=== PATIENT | female | born 1960 | race Caucasian/White ===

== ENCOUNTER 2017-01-12 18:23 | Inpatient (IN) | payer BC ==
[2017-01-12] MEDS ORDERED: 0.9 % SODIUM CHLORIDE 1,000 ML BAG IV ONE ×3 (19:52→22:38)
[2017-01-12] MEDS ORDERED: ONDANSETRON HCL IV 4 MG/2 ML VIAL IV ONE (19:52)
--- NOTE | 2017-01-12 19:52 | Emergency Department Record ---
History of Present Illness - General Stated complaint: FLU,ABD PAIN Time Seen by Provider: 01/12/17 19:43 Source: Patient, Family - History of Present Illness Initial comments: Flu symptoms began on Sunday01-10-17 with cough, congestion, total body aches , abdominal pain nausea, vomiting times 3-4 and diarrhea. Subjective fevers, chills. Yesterday her RUQ began hurting. She is a pack per day smoker. - Related Data Allergies Allergy/AdvReac Type Severity Reaction Status Date / Time No Known Drug Allergies Allergy Unverified 09/29/16 14:23 Review of Systems Reviewed: No additional complaints except as noted below Constitutional: Reports: As per HPI. Denies: Chills, Fever, Malaise, Night sweats, Weakness, Weight change Eyes: Reports: As per HPI. Denies: Eye discharge, Eye pain, Photophobia, Vision change ENT: Reports: As per HPI. Denies: Congestion, Dental pain, Ear pain, Epistaxis , Hearing loss, Throat pain Respiratory: Reports: As per HPI. Denies: Cough, Dyspnea, Hemoptysis, Stridor, Wheezes Cardiovascular: Reports: As per HPI. Denies: Arrhythmia, Chest pain, Dyspnea on exertion, Edema, Murmurs, Orthopnea, Palpitations, Paroxysmal nocturnal dyspnea, Rheumatic Fever, Syncope Endocrine: Reports: As per HPI. Denies: Fatigue, Heat or cold intolerance, Polydipsia, Polyuria Gastrointestinal: Reports: As per HPI. Denies: Abdominal pain, Constipation, Diarrhea, Hematemesis, Hematochezia, Melena, Nausea, Vomiting Genitourinary: Reports: As per HPI. Denies: Abnormal menses, Discharge, Dyspareunia, Dysuria, Frequency, Hematuria, Incontinence, Retention, Urgency Musculoskeletal: Reports: As per HPI. Denies: Arthralgia, Back pain, Gout, Joint swelling, Myalgia, Neck pain Skin: Reports: As per HPI. Denies: Bruising, Change in color, Change in hair/ nails, Lesions, Pruritus, Rash Neurological: Reports: As per HPI. Denies: Abnormal gait, Confusion, Headache, Numbness, Paresthesias, Seizure, Tingling, Tremors, Vertigo, Weakness Psychiatric: Reports: As per HPI. Denies: Anxiety, Auditory hallucinations, Depression, Homicidal thoughts, Suicidal thoughts, Visual hallucinations Hematological/Lymphatic: Reports: As per HPI. Denies: Anemia, Blood Clots, Easy bleeding, Easy bruising, Swollen glands Past Medical History - SOCIAL HISTORY Smoking Status: Current every day smoker - RESPIRATORY Hx Respiratory Disorders: No - CARDIOVASCULAR Hx Cardio Disorders: No - NEURO Hx Neuro Disorders: Yes Hx Headaches: Yes - GI Hx GI Disorders: No - Hx Genitourinary Disorders: No - ENDOCRINE Hx Endocrine Disorders: No - MUSCULOSKELETAL Hx Musculoskeletal Disorders: No - PSYCH Hx Psych Problems: No - HEMATOLOGY/ONCOLOGY Hx Hematology/Oncology Disorders: No Family Medical History Hx Cancer: Mother Hx Heart Disease: Father Physical Exam - General General Appearance: Alert, Oriented x3, Cooperative, Moderate distress ( congested, fatigued, coughing episodes, holding RUQ abdomen) - Head Head exam: Normal inspection - Eye Eye exam: Normal appearance, PERRL Pupils: Normal accommodation - ENT ENT exam: Normal exam, Mucous membranes dry, Normal external ear exam, Normal orophraynx, TM's normal bilaterally Ear exam: Normal external inspection. negative: External canal tenderness Nasal Exam: Normal inspection, Discharge (congestion). negative: Sinus tenderness Mouth exam: Normal external inspection, Tongue normal Teeth exam: Normal inspection. negative: Dental caries Throat exam: Normal inspection. negative: Tonsillar erythema, Tonsillar exudate - Neck Neck exam: Normal inspection, Full ROM. negative: Lymphadenopathy, Meningismus , Tenderness - Respiratory Respiratory exam: Prolonged expiratory, Rhonchi (coarse harsh breath sounds, especially with coughing), Other (RA biox on admission was 92% which improved with 2 liters nc.). negative: Accessory muscle use, Respiratory distress, Stridor - Cardiovascular Cardiovascular Exam: Normal rhythm, Normal heart sounds, Tachycardia - GI/Abdominal GI/Abdominal exam: Soft, Normal bowel sounds, Tenderness (RUQ and epigastric tenderness on palpation) - Rectal Rectal exam: Deferred - exam: Deferred - Extremities Extremities exam: Normal inspection, Full ROM, Normal capillary refill. negative: Calf tenderness, Pedal edema, Tenderness - Back Back exam: Reports: Normal inspection, Full ROM. Denies: CVA tenderness (R), CVA tenderness (L), Muscle spasm, Rash noted, Tenderness - Neurological Neurological exam: Alert, CN II-XII intact, Normal gait, Oriented X3, Reflexes normal - Psychiatric Psychiatric exam: Normal affect, Normal mood - Skin Skin exam: Dry, Intact, Normal color, Warm Course Vital Signs 01/12/17 19:15 Temperature 101.2 F H Pulse Rate [ 98 H Pulse Ox Probe] Respiratory 20 Rate Blood Pressure 160/87 [Left Arm] Pulse Ox 93 L - Reevaluation(s) Reevaluation #1: Informed patient of her test results and her Right lower lobe pneumonia. She agrees to admission. Urine is very dark in color. Will wait for results prior to admission. 01/12/17 22:01 Reevaluation #2: Patient appears much more comfortable after hydration and nebulizer although agrees she is in need of admission. Orders in progress. IV antibiotics infused , states her nebulizer did not help much. 01/12/17 22:41 01/12/17 22:42 Medical Decision Making - Management Options MDM Management: Additional Work-up Planned (e.g. ADM/Transfer/OP Study) - Data Complexity MDM Data: Labs Ordered and/or Reviewed (WBC 8.3 with 13 BANDS; ), X-Ray Ordered and/or Reviewed (CXR: Dense conslolidation RLL per radiologist.) - Lab Data Result diagrams: 01/12/17 19:40 01/12/17 19:40 Disposition Disposition: Admit Clinical Impression: Dehydration Pneumonia Qualifiers: Pneumonia type: due to unspecified organism Laterality: right Lung location: lower lobe of lung Qualified Code(s): J18.1 - Lobar pneumonia, unspecified organism Fever Qualifiers: Fever type: unspecified Qualified Code(s): R50.9 - Fever, unspecified Disposition: Still a Patient at [facility] Decision to Admit: Admit from ER Decision to Admit Date: 01/12/17 Decision to Admit Time: 22:45 Accepting Physician: Dr. Dowling Condition: (2) Stable
[2017-01-12] MEDS ORDERED: ACETAMINOPHEN 325 MG TAB PO ONE (19:55)
[2017-01-12] MEDS ORDERED: KETOROLAC 30 MG/ML VIAL IVP ONE (19:55)
[2017-01-12 20:04] LABS: HEMATOCRIT 43.6 % (35.0-47.0); HEMOGLOBIN 14.7 gm/dl (11.6-16.0); MEAN CELL VOLUME 92.8 fl (81-97); MEAN CORPUSCULAR HEMOGLOBIN 31.3 pg (27-33); MEAN CORPUSCULAR HGB CONC 33.7 g/dl (32-36); MEAN PLATELET VOLUME 9.7 fl (7.4-10.4); PLATELET COUNT 182 K/uL (130-400); RED CELL DISTRIBUTION WIDTH 13.5 % (11.5-14.5); WHITE BLOOD COUNT W/O DIFF 8.3 K/uL (4.2-12.2)
[2017-01-12 20:13] LABS: PLATELET ESTIMATE NORMAL (NORMAL)
[2017-01-12 20:15] LABS: ALBUMIN 4.3 gm/dL (3.5-5.0); BILIRUBIN,TOTAL 1.06 mg/dL (0.2-1.3); TOTAL PROTEIN 7.4 gm/dL (6.3-8.2)
[2017-01-12] MEDS ORDERED: AZITHROMYCIN 500 MG TABLET PO ONE (21:07)
[2017-01-12] MEDS ORDERED: CEFTRIAXONE SODIUM 2 GM in 0.9 % SODIUM CHLORIDE 100ML 100 ML IVPB ONE (21:07)
[2017-01-12] MEDS ORDERED: IPRATROPIUM/ALBUTEROL (0.5MG/3MG) NEB INH ONE (21:07)
[2017-01-12 21:10] LABS: ANION GAP 9.9 (7-16); BLOOD UREA NITROGEN 20 mg/dL (7-17); CARBON DIOXIDE 27.1 mmol/L (22-30); CREATININE 0.8 mg/dL (0.52-1.04); EST GLOMERULAR FILTRATION RATE > 60 ml/min; GLUCOSE,RANDOM 115 mg/dL (70-110)
[2017-01-12 21:29] LABS: INFLUENZA A NEGATIVE (NEGATIVE); INFLUENZA B NEGATIVE (NEGATIVE)
[2017-01-12] MEDS ORDERED: POTASSIUM CHLORIDE 20 MEQ TABLET PO ONE (21:59)
[2017-01-12 22:05] LABS: URINE APPEARANCE CLEAR; URINE BILIRUBIN SMALL (NEGATIVE); URINE BLOOD MODERATE (NEGATIVE); URINE COLOR YELLOW; URINE GLUCOSE (UA) NEGATIVE (NEGATIVE); URINE KETONE 40 mg/dL (NEGATIVE); URINE LEUKOCYTE ESTERASE NEGATIVE (NEGATIVE); URINE NITRITE NEGATIVE (NEGATIVE)
[2017-01-12 22:15] LABS: URINE AMORPHOUS SEDIMENT 2+; URINE MUCUS HEAVY
[2017-01-12] MEDS ORDERED: AL HYDROX/MAG HYDROX 30ML UD PO PRN (23:47)
[2017-01-12] MEDS ORDERED: CEFTRIAXONE SODIUM 2 GM in 0.9 % SODIUM CHLORIDE 100ML 100 ML IVPB SCH (23:47)
[2017-01-13] MEDS: HYDROMORPHONE HCL 1 MG/ML CPJ IVP PRN ×2 (00:15→05:06)
[2017-01-13] MEDS: 0.9 % SODIUM CHLORIDE 1000ML 1,000 ML IV PRN ×3 (01:20→18:47)
[2017-01-13] MEDS: METHYLPREDNISOLONE PF 125MG/VIAL IVP SCH ×2 (01:23→09:52)
[2017-01-13] MEDS: IPRATROPIUM/ALBUTEROL (0.5MG/3MG) NEB INH SCH ×6 (02:26→22:05)
[2017-01-13] MEDS: ACETAMINOPHEN 500 MG TABLET PO PRN ×2 (05:07→23:07)
[2017-01-13] MEDS ORDERED: ALBUTEROL SULFATE (0.083%) 2.5 MG/3 ML NEB INH SCH (06:00)
[2017-01-13 06:07] LABS: BASO % 0.3 % (0-6); EOS % 0.1 % (0-6); HEMOGLOBIN 12.1 gm/dl (11.6-16.0); LYMPH % 6.1 % (16-45); MEAN CELL VOLUME 93.4 fl (81-97); MEAN CORPUSCULAR HEMOGLOBIN 30.6 pg (27-33); MEAN CORPUSCULAR HGB CONC 32.7 g/dl (32-36); MEAN PLATELET VOLUME 9.4 fl (7.4-10.4); MONO % 6.7 % (0-9); PLATELET COUNT 173 K/uL (130-400); RED BLOOD COUNT 3.96 M/uL (3.80-5.40); RED CELL DISTRIBUTION WIDTH 13.6 % (11.5-14.5); WHITE BLOOD COUNT W/O DIFF 6.9 K/uL (4.2-12.2)
[2017-01-13] MEDS ORDERED: ALBUTEROL SULFATE (0.083%) 2.5 MG/3 ML NEB INH PRN (08:54)
[2017-01-13] MEDS ORDERED: AZITHROMYCIN 500 MG TABLET PO SCH (10:00)
[2017-01-13] MEDS ORDERED: HYDROCODONE/APAP 5/325MG TABLET PO PRN (11:54)
--- NOTE | 2017-01-13 12:15 | History & Physical ---
History of Present Illness - Date of Service Date of Service for History & Physical: 01/13/17 - History of Present Illness Admitting Diagnosis: RLL Pneumonia; dehydration; History of Present Illness: 56 y/o female with CC MONY and RUQ abdominal pain admitted with RLL pneumonia. No significant medical history, is an everyday smoker. Prior to admission had 2 day history of fever, chills, cough, congestion, body aches, diarrhea, nausea and vomiting with onset of MONY, RUQ abdominal pain and rigidity the day of admission. Has never been hospitalized for pneumonia before. While in the ED WBC 8.3, Plt 182, Bands 13.0, K 3.4, BUN 20, Lipase 19, AST/ALT normal, urine + ketones, influenza screen negative. CXR RLL dense consolidation. Was given toradol for RUQ abdominal pain with little relief. 01/13- resting comfortably in room, no dysnea noted. Reports RUQ abdominal pain has greatly improved since receiving Dilaudid. Has been afebrile, Tmax in ED 101.2. Nausea and vomiting have resolved. Has not smoked in 5 days and plans on quitting cold turkey. PCP Dr Kerwin Roberson Travel Screening - Travel/Exposure Within Last 30 Days Have you traveled within the last 30 days?: No - Travel/Exposure Within Last Year Have you traveled outside the [place] in the last year?: No - Additonal Travel Details Have you been exposed to anyone with a communicable illness?: No - Travel Symptoms Symptom Screening: Fever (Subjective), Headache, Joint & Muscle Aches, Weakness , Fatigue, Diarrhea, Vomiting, Stomach Pain, Lack of Appetite, Chills Review of Systems Constitutional: Reports: As per HPI. Denies: Chills, Fever, Malaise, Night sweats, Weakness, Weight change Eyes: Reports: As per HPI. Denies: Eye discharge, Eye pain, Photophobia, Vision change ENT: Reports: As per HPI. Denies: Congestion, Dental pain, Ear pain, Epistaxis , Hearing loss, Throat pain Respiratory: Reports: As per HPI. Denies: Cough, Dyspnea, Hemoptysis, Stridor, Wheezes Cardiovascular: Reports: As per HPI. Denies: Arrhythmia, Chest pain, Dyspnea on exertion, Edema, Murmurs, Orthopnea, Palpitations, Paroxysmal nocturnal dyspnea, Rheumatic Fever, Syncope Endocrine: Reports: As per HPI. Denies: Fatigue, Heat or cold intolerance, Polydipsia, Polyuria Gastrointestinal: Reports: As per HPI. Denies: Abdominal pain, Constipation, Diarrhea, Hematemesis, Hematochezia, Melena, Nausea, Vomiting Genitourinary: Reports: As per HPI. Denies: Abnormal menses, Discharge, Dyspareunia, Dysuria, Frequency, Hematuria, Incontinence, Retention, Urgency Musculoskeletal: Reports: As per HPI. Denies: Arthralgia, Back pain, Gout, Joint swelling, Myalgia, Neck pain Skin: Reports: As per HPI. Denies: Bruising, Change in color, Change in hair/ nails, Lesions, Pruritus, Rash Neurological: Reports: As per HPI. Denies: Abnormal gait, Confusion, Headache, Numbness, Paresthesias, Seizure, Tingling, Tremors, Vertigo, Weakness Psychiatric: Reports: As per HPI. Denies: Anxiety, Auditory hallucinations, Depression, Homicidal thoughts, Suicidal thoughts, Visual hallucinations Hematological/Lymphatic: Reports: As per HPI. Denies: Anemia, Blood Clots, Easy bleeding, Easy bruising, Swollen glands Past Medical History - SOCIAL HISTORY Smoking Status: Current every day smoker Alcohol Use: None Drug Use: None - RESPIRATORY Hx Respiratory Disorders: No - CARDIOVASCULAR Hx Cardio Disorders: No - NEURO Hx Neuro Disorders: Yes Hx Headaches: Yes (hx migraines) - GI Hx GI Disorders: No - Hx Genitourinary Disorders: No - ENDOCRINE Hx Endocrine Disorders: No - MUSCULOSKELETAL Hx Musculoskeletal Disorders: No - PSYCH Hx Psych Problems: No - HEMATOLOGY/ONCOLOGY Hx Hematology/Oncology Disorders: No Family Medical History Any Significant Family History?: Yes Hx Cancer: Mother Hx Heart Disease: Father H&P Meds/Allergies - Allergies Allergies: Allergies Allergy/AdvReac Type Severity Reaction Status Date / Time No Known Drug Allergies Allergy Unverified 09/29/16 14:23 - Active Medications Active Medications: Current Medications Acetaminophen (Tylenol 500mg Tab) 1,000 mg PO Q6H PRN PRN Reason: PAIN/TEMP Last Admin: 01/13/17 05:07 Dose: 1,000 mg Hydrocodone Bitart/Acetaminophen ([place] 5mg/325mg) 1 each PO Q6H PRN PRN Reason: Pain - Moderate (5-7) Al Hydroxide/Mg Hydroxide (Maalox) 30 ml PO DAILY PRN PRN Reason: INDIGESTION Albuterol Sulfate () 2.5 mg INH RESP.Q2H PRN PRN Reason: DIFFICULTY IN BREATHING Stop: 01/18/17 08:53 Albuterol/Ipratropium (Duoneb) 3 ml INH RESP.Q4H.[facility] Last Admin: 01/13/17 09:30 Dose: 3 ml Azithromycin (Zithromax) 500 mg PO DAILY [facility] Last Admin: 01/13/17 09:52 Dose: 500 mg Hydromorphone HCl (Dilaudid) 0.5 mg IVP Q2H PRN PRN Reason: Pain - Moderate (5-7) Last Admin: 01/13/17 05:06 Dose: 0.5 mg Sodium Chloride () 1,000 mls @ 125 mls/hr IV .Q8H PRN PRN Reason: LARGE VOLUME IV Last Admin: 01/13/17 09:53 Dose: 125 mls/hr Ceftriaxone Sodium 2 gm/ (Sodium Chloride) 100 mls @ 200 mls/hr IVPB Q24H [facility] Stop: 01/18/17 22:01 Methylprednisolone Sodium Succinate (Solu-Medrol) 60 mg IVP DAILY [facility] Last Admin: 01/13/17 09:52 Dose: 60 mg Physical Exam - Vital Signs Vital Signs: Vital Signs - Last 24 Hrs Temp Pulse Pulse Resp BP BP BP 01/13/17 10:28 68 16 01/13/17 10:27 01/13/17 10:00 98.3 F 72 18 88/63 01/13/17 09:00 20 01/13/17 06:06 80 18 01/13/17 05:10 99.2 F 84 18 121/75 01/12/17 23:58 99.0 F 90 20 113/61 01/12/17 23:47 99.3 F 96 H 20 133/72 Pulse Ox 01/13/17 10:28 96 01/13/17 10:27 94 L 01/13/17 10:00 96 01/13/17 09:00 01/13/17 06:06 94 L 01/13/17 05:10 93 L 01/12/17 23:58 92 L 01/12/17 23:47 95 - General General Appearance: Alert, Oriented x3, Cooperative - Head Head exam: Normal inspection - Eye Eye exam: Normal appearance, PERRL Pupils: Normal accommodation - ENT ENT exam: Normal exam, Mucous membranes dry, Normal external ear exam, Normal orophraynx, TM's normal bilaterally Ear exam: Normal external inspection. negative: External canal tenderness Nasal Exam: Normal inspection, Discharge (congestion). negative: Sinus tenderness Mouth exam: Normal external inspection, Tongue normal Teeth exam: Normal inspection. negative: Dental caries Throat exam: Normal inspection. negative: Tonsillar erythema, Tonsillar exudate - Neck Neck exam: Normal inspection, Full ROM. negative: Lymphadenopathy, Meningismus , Tenderness - Respiratory Respiratory exam: Prolonged expiratory, Rhonchi (coarse harsh breath sounds, especially with coughing), Other (RA biox on admission was 92% which improved with 2 liters nc.). negative: Accessory muscle use, Respiratory distress, Stridor - Cardiovascular Cardiovascular Exam: Normal rhythm, Normal heart sounds, Tachycardia - GI/Abdominal GI/Abdominal exam: Soft, Normal bowel sounds, Tenderness (RUQ and epigastric tenderness on palpation) - Rectal Rectal exam: Deferred - exam: Deferred - Extremities Extremities exam: Normal inspection, Full ROM, Normal capillary refill. negative: Calf tenderness, Pedal edema, Tenderness - Back Back exam: Reports: Normal inspection, Full ROM. Denies: CVA tenderness (R), CVA tenderness (L), Muscle spasm, Rash noted, Tenderness - Neurological Neurological exam: Alert, CN II-XII intact, Normal gait, Oriented X3, Reflexes normal - Psychiatric Psychiatric exam: Normal affect, Normal mood - Skin Skin exam: Dry, Intact, Normal color, Warm Results - Labs Result Diagrams: 01/13/17 05:55 01/12/17 19:40 Labs Last 24 Hours: Laboratory Results - last 24 hr 01/13/17 05:55 WBC 6.9 RBC 3.96 Hgb 12.1 Hct 37.0 MCV 93.4 MCH 30.6 MCHC 32.7 RDW 13.6 Plt Count 173 MPV 9.4 Neutrophils % 60.0 Band Neutrophils % 28.0 H Lymphocytes % 6.0 L Monocytes % 6.0 Eosinophils % 0.0 Basophils % 0.0 VTE H&P Assessment - Risk for VTE Risk for VTE: Yes Risk Level: Low Risk Assessment Date: 01/13/17 Risk Assessment Time: 12:00 VTE Orders Placed or Will Be Placed: Yes Plan - Inpatient Certification Inpatient Certification: Admit to inpatient care: Based on my medical assessment, after consideration of patient's risk factors (age, co-morbidities and patient presenting symptoms and acuity), I expect that this patient will remain in the hospital greater than or equal to two midnights and that the services needed warrant inpatient care because: Patient Risk Factors: [] Estimated length of stay: [] The patient may reasonably be expected to be discharged or transferred to a hospital within 96 hours after admission to [facility]. Services needed: [] Post hospital care (if known): [] I certify that my determination is in accordance with my understanding of Medicare requirements for reasonable and necessary inpatient services. - Detailed Diagnosis and Plan (1) Pneumonia Current Visit: Yes Status: Acute Qualifiers: Pneumonia type: due to unspecified organism Laterality: right Lung location: lower lobe of lung Qualified Code(s): J18.1 - Lobar pneumonia, unspecified organism Base Code: J18.9 - PNEUMONIA, UNSPECIFIED ORGANISM Comment: 01/13- admitted for RLL pneumonia, is a current everyday smoker. WBC normal with band neut 13.0->28. Tmax 101.2, is currently afebrile. No elevation in liver enzymes, no reported hx gall bladder disease. Abdominal pain likely pulmonary in nature. Abdominal pain significantly improved today, no rigidity organomegaly. - Change antibiotics to Levaquin 750mg QD - Continue Solumedrol 60mg QD - Continue DuoNeb Q 4 hr WA - D-Dimer today - nursing to trial without oxygen - will transition Dilaudid to PO [place] 5/325 for RUQ abdominal pain - plan is to continue immediate smoking cessation at discharge (2) Dehydration Current Visit: Yes Status: Acute Base Code: E86.0 - DEHYDRATION Comment: 01/13- admitted for RLL pneumonia with 2 day history of nausea, vomiting , body aches, chils. Urine in ED + ketones, moderate blood, SG >1.030. Nausea and vomiting resolved now. - continue IVF @ 125ml/hr (3) DVT prophylaxis Current Visit: Yes Status: Acute Base Code: [id number] - Comment: 01/13- low risk, encourage frequent ambulation (4) Full code status Current Visit: Yes Status: Acute Base Code: Z78.9 - OTHER SPECIFIED HEALTH STATUS Comment: 01/13- will remain full code during this hospitalization
[2017-01-13] MEDS ORDERED: CEFTRIAXONE SODIUM 2 GM in 0.9 % SODIUM CHLORIDE 100ML 100 ML IVPB SCH (22:00)
[2017-01-14] MEDS: 0.9 % SODIUM CHLORIDE 1000ML 1,000 ML IV PRN (04:00)
[2017-01-14] MEDS: IPRATROPIUM/ALBUTEROL (0.5MG/3MG) NEB INH SCH ×5 (06:14→22:31)
[2017-01-14] MEDS: LEVOFLOXACIN/D5W 750 MG in DEXTROSE 1 BAG IVPB SCH (10:14)
[2017-01-14] MEDS: METHYLPREDNISOLONE PF 125MG/VIAL IVP SCH (10:15)
[2017-01-14 10:51] LABS: HEMATOCRIT 34.3 % (35.0-47.0); HEMOGLOBIN 11.2 gm/dl (11.6-16.0); MEAN CELL VOLUME 94.2 fl (81-97); MEAN CORPUSCULAR HGB CONC 32.7 g/dl (32-36); MEAN PLATELET VOLUME 9.8 fl (7.4-10.4); PLATELET COUNT 226 K/uL (130-400); RED BLOOD COUNT 3.64 M/uL (3.80-5.40); RED CELL DISTRIBUTION WIDTH 14.1 % (11.5-14.5); WHITE BLOOD COUNT W/O DIFF 8.3 K/uL (4.2-12.2)
[2017-01-14 10:57] LABS: MEAN CORPUSCULAR HEMOGLOBIN 30.7 pg (27-33)
[2017-01-14 11:08] LABS: PLATELET ESTIMATE NORMAL (NORMAL)
[2017-01-14] MEDS: FLUTICASONE/SALMETEROL 250/50 DISKUS INH SCH (18:08)
--- NOTE | 2017-01-14 20:32 | Physician Progress Note ---
Subjective - Date Date of Physician Progress Note: 01/14/17 - Subjective Subjective Comment: Reports breathing is improved from yesterday. Up for a shower today without oxygen, felt "winded" and weak but overall better. Does not feel good enough to go home and is requesting a note to be off from work a few days after discharge. No new nursing concerns. Denies GI/ dysfunction. Objective - Vital Signs Vital Signs: Vital Signs - Last 24 Hrs Temp Pulse Pulse Resp BP Pulse Ox 01/14/17 18:11 80 20 96 01/14/17 18:10 80 18 96 01/14/17 13:52 98.3 F 71 18 119/72 95 01/14/17 10:05 96 H 18 88 L 01/14/17 08:41 20 01/14/17 06:14 60 16 94 L 01/14/17 06:00 98.5 F 64 20 125/66 94 L 01/13/17 22:05 67 20 90 L 01/13/17 22:01 98.5 F 71 18 118/64 91 L - General General Appearance: Alert, Oriented x3, Cooperative - Head Head exam: Normal inspection - Eye Eye exam: Normal appearance, PERRL Pupils: Normal accommodation - ENT ENT exam: Normal exam, Mucous membranes dry, Normal external ear exam, Normal orophraynx, TM's normal bilaterally Ear exam: Normal external inspection. negative: External canal tenderness Nasal Exam: Normal inspection. negative: Sinus tenderness Mouth exam: Normal external inspection, Tongue normal Teeth exam: Normal inspection. negative: Dental caries Throat exam: Normal inspection. negative: Tonsillar erythema, Tonsillar exudate - Neck Neck exam: Normal inspection, Full ROM. negative: Lymphadenopathy, Meningismus , Tenderness - Respiratory Respiratory exam: Decreased breath sounds, Other (RA biox on admission was 92% which improved with 2 liters nc.). negative: Accessory muscle use, Respiratory distress, Stridor - Cardiovascular Cardiovascular Exam: Normal rhythm, Normal heart sounds, Tachycardia - GI/Abdominal GI/Abdominal exam: Soft, Normal bowel sounds, Tenderness (RUQ and epigastric tenderness on palpation) - Rectal Rectal exam: Deferred - exam: Deferred - Extremities Extremities exam: Normal inspection, Full ROM, Normal capillary refill. negative: Calf tenderness, Pedal edema, Tenderness - Back Back exam: Reports: Normal inspection, Full ROM. Denies: CVA tenderness (R), CVA tenderness (L), Muscle spasm, Rash noted, Tenderness - Neurological Neurological exam: Alert, CN II-XII intact, Normal gait, Oriented X3, Reflexes normal - Psychiatric Psychiatric exam: Normal affect, Normal mood - Skin Skin exam: Dry, Intact, Normal color, Warm Assessment and Plan - Assessment and Plan (1) Pneumonia Current Visit: Yes Status: Acute Qualifiers: Pneumonia type: due to unspecified organism Laterality: right Lung location: lower lobe of lung Qualified Code(s): J18.1 - Lobar pneumonia, unspecified organism Base Code: J18.9 - PNEUMONIA, UNSPECIFIED ORGANISM Comment: 01/14- admitted for RLL pneumonia, is a current everyday smoker. WBC normal with band neut 13.0->28-> 9. Tmax 101.2, is currently afebrile. No elevation in liver enzymes, no reported hx gall bladder disease. Abdominal pain likely pulmonary in nature. Abdominal pain resolved improved today without the use of dilaudid or norco, no rigidity/ organomegaly. - Anticipate DC home 01/15 after O2 qualifier complete - Levaquin 750mg QD - Continue Solumedrol 60mg QD - Continue DuoNeb Q 4 hr WA - D-Dimer today- 0.58 - nursing to trial without oxygen- 91% at rest, 88% sleeping - plan is to continue immediate smoking cessation at discharge - Will start on Advair 250/50 BID, likely underlying COPD with continued decrease lung sounds even after bronchodilator, + smoking history - Follow up PCP in 2 weeks - Recommend pulmonary consult at discharge (2) Dehydration Current Visit: Yes Status: Acute Base Code: E86.0 - DEHYDRATION Comment: 01/14- admitted for RLL pneumonia with 2 day history of nausea, vomiting , body aches, chils. Urine in ED + ketones, moderate blood, SG >1.030. Nausea and vomiting resolved now. - SL IV - CMP in am (3) DVT prophylaxis Current Visit: Yes Status: Acute Base Code: [id number] - Comment: 01/14- low risk, encourage frequent ambulation (4) Full code status Current Visit: Yes Status: Acute Base Code: Z78.9 - OTHER SPECIFIED HEALTH STATUS Comment: 01/14- will remain full code during this hospitalization Results - Labs Result Diagrams: 01/14/17 10:26 01/12/17 19:40 Labs Last 24 Hours: Laboratory Results - last 24 hr 01/13/17 01/14/17 10:18 10:26 WBC 8.3 RBC 3.64 L Hgb 11.2 L Hct 34.3 L MCV 94.2 MCH 30.7 MCHC 32.7 RDW 14.1 Plt Count 226 MPV 9.8 Neutrophils % 74.0 Band Neutrophils % 9.0 H Lymphocytes % 14.0 L Monocytes % 3.0 Eosinophils % Cancelled Basophils % Cancelled Metamyelocytes Cancelled Myelocytes Cancelled Promyelocytes Cancelled Nucleated RBCs Cancelled Differential Comment Cancelled Hypersegmented Polys Cancelled Plasma Cells Cancelled Other Cell Type Cancelled Toxic Granulation Cancelled Dohle Bodies Cancelled Elbert Rods Cancelled Platelet Estimate Normal RBC Morphology Normal Polychromasia Cancelled Hypochromasia Cancelled Poikilocytosis Cancelled Basophilic Stippling Cancelled Anisocytosis Cancelled Microcytosis Cancelled Macrocytosis Cancelled Spherocytes Cancelled Sickle Cells Cancelled Target Cells Cancelled Tear Drop Cells Cancelled Ovalocytes Cancelled Stomatocytes Cancelled Helmet Cells Cancelled [place] Bodies Cancelled Cruger Rings Cancelled Kevin Cells Cancelled Acanthocytes (Spur) Cancelled Rouleaux Cancelled Schistocytes Cancelled Morphology Comment Cancelled Influenza Virus (PCR) Not detected Specimen Comment Nasopharyngeal DVT/PE Assessment - Risk for VTE Risk for VTE: No Risk Level: Low Risk Assessment Date: 01/13/17 Risk Assessment Time: 12:00 VTE Orders Placed or Will Be Placed: Yes - Active Medicaitons Current Medications: Current Medications Acetaminophen (Tylenol 500mg Tab) 1,000 mg PO Q6H PRN PRN Reason: PAIN/TEMP Last Admin: 01/13/17 23:07 Dose: 1,000 mg Hydrocodone Bitart/Acetaminophen ([place] 5mg/325mg) 1 each PO Q6H PRN PRN Reason: Pain - Moderate (5-7) Last Admin: 01/13/17 16:28 Dose: 1 each Al Hydroxide/Mg Hydroxide (Maalox) 30 ml PO DAILY PRN PRN Reason: INDIGESTION Albuterol Sulfate () 2.5 mg INH RESP.Q2H PRN PRN Reason: DIFFICULTY IN BREATHING Stop: 01/18/17 08:53 Albuterol/Ipratropium (Duoneb) 3 ml INH RESP.Q4H.[facility] Last Admin: 01/14/17 18:07 Dose: 3 ml Hydromorphone HCl (Dilaudid) 0.5 mg IVP Q2H PRN PRN Reason: Pain - Moderate (5-7) Last Admin: 01/13/17 05:06 Dose: 0.5 mg Sodium Chloride () 1,000 mls @ 125 mls/hr IV .Q8H PRN PRN Reason: LARGE VOLUME IV Last Admin: 01/14/17 04:00 Dose: 125 mls/hr Levofloxacin/Dextrose 750 mg/ (Glucose) 150 mls @ 125 mls/hr IVPB DAILY [facility] Stop: 01/19/17 10:01 Last Admin: 01/14/17 10:14 Dose: 125 mls/hr Methylprednisolone Sodium Succinate (Solu-Medrol) 60 mg IVP DAILY [facility] Last Admin: 01/14/17 10:15 Dose: 60 mg Fluticasone/Salmeterol (Advair 250/50) 1 puff INH RESP.DAILY [facility] Last Admin: 01/14/17 18:08 Dose: 1 puff AMI Plan - Labs Result Diagrams: 01/14/17 10:26 01/12/17 19:40
[2017-01-15] MEDS: IPRATROPIUM/ALBUTEROL (0.5MG/3MG) NEB INH SCH ×3 (06:08→14:05)
[2017-01-15] MEDS: FLUTICASONE/SALMETEROL 250/50 DISKUS INH SCH (06:15)
[2017-01-15 06:59] LABS: MEAN CELL VOLUME 93.2 fl (81-97); MEAN CORPUSCULAR HGB CONC 33.3 g/dl (32-36); MEAN PLATELET VOLUME 9.8 fl (7.4-10.4); PLATELET COUNT 267 K/uL (130-400); RED BLOOD COUNT 3.54 M/uL (3.80-5.40); RED CELL DISTRIBUTION WIDTH 14.1 % (11.5-14.5); WHITE BLOOD COUNT W/O DIFF 10.5 K/uL (4.2-12.2)
[2017-01-15 07:14] LABS: ALBUMIN 2.8 gm/dL (3.5-5.0); ALKALINE PHOSPHATASE 89 U/L (38-126); ALT/SGPT 266 U/L (9-52); AST/SGOT 161 U/L (14-36); BILIRUBIN,TOTAL 0.21 mg/dL (0.2-1.3); BLOOD UREA NITROGEN 14 mg/dL (7-17); CREATININE 0.6 mg/dL (0.52-1.04); EST GLOMERULAR FILTRATION RATE > 60 ml/min; GLUCOSE,RANDOM 90 mg/dL (70-110); TOTAL PROTEIN 5.5 gm/dL (6.3-8.2)
--- NOTE | 2017-01-15 07:45 | RADIOLOGY REPORT ---
EXAM: CHEST, TWO VIEWS HISTORY: DIFFICULTY IN BREATHING. TECHNIQUE: Frontal and lateral views of the chest were performed. FINDINGS: There is a dense consolidation in the right lower lobe. The heart size is normal. No pulmonary vascular congestion. The osseous structures demonstrate mild degenerative change. IMPRESSION: DENSE CONSOLIDATION RIGHT LOWER LOBE. JOB NUMBER: [id number] MTDD
--- NOTE | 2017-01-15 07:52 | CT ANGIOGRAM REPORT ---
EXAM: CTA OF THE CHEST HISTORY: ACUTE DIFFICULTY BREATHING, RIGHT LOWER CHEST PAIN. TECHNIQUE: Contiguous axial images from the thoracic inlet to the upper abdomen were obtained after the uneventful intravenous administration of 100 ml of Omnipaque 350. Sagittal and coronal two dimensional MIP as well as 3D/MIP reformatted images were obtained for better anatomic delineation. Comparison: Chest x-ray 01/12/17. FINDINGS: Progressive consolidation of the right lower lobe which is now involved completely. Mild dependent atelectasis left lower lobe. No pleural effusion. Central airways are unremarkable. The heart is not enlarged and there is no pericardial effusion. Moderate coronary artery calcification. Probable mildly enlarged right infrahilar lymph nodes partially obscured by lung consolidation. Mildly prominent subcarinal lymph node measures 1.8 x 1.7 cm likely reactive in nature. No filling defect to suggest pulmonary embolism. No thoracic aortic dissection. The upper abdomen demonstrates thickening of the adrenal glands likely due to benign hyperplasia. No lytic or blastic osseous lesion. IMPRESSION: 1. EXTENSIVE PNEUMONIA WITH COMPLETE CONSOLIDATIVE CHANGE IN THE RIGHT LOWER LOBE, THIS HAS PROGRESSED FROM THE PRIOR CHEST X-RAY. 2. PROBABLE REACTIVE ADENOPATHY IN THE RIGHT HILUM AND SUBCARINAL DISTRIBUTION. 3. NO PE OR THORACIC AORTIC DISSECTION. 4. ADRENAL HYPERPLASIA. JOB NUMBER: [id number] [facility]
[2017-01-15] MEDS: ACETAMINOPHEN 500 MG TABLET PO PRN (09:25)
[2017-01-15] MEDS: LEVOFLOXACIN/D5W 750 MG in DEXTROSE 1 BAG IVPB SCH (10:19)
[2017-01-15] MEDS: METHYLPREDNISOLONE PF 125MG/VIAL IVP SCH (10:20)
--- NOTE | 2017-01-15 16:49 | Discharge Note ---
Discharge Note - Date Date of Discharge Note: 01/15/17 Disposition: Home, Self-Care Condition: (2) Stable Instructions: Community-acquired Pneumonia (DC) Additional Instructions: follow up with dr. Karol lawrence at 10:10 Prescriptions: Fluticasone/Salmeterol 250/50 [Advair 250/50] 1 puff INH BID #1 disk Ipratropium/Albuterol [Duoneb] 3 ml INH [id number] #120 ampul.neb Levofloxacin [Levaquin Tab] 500 mg PO DAILY #7 tab Nicotine [Nicotine 21Mg] 1 patch TD DAILY #30 patch Referrals: Kerwin Roberson D.O. [Primary Care Provider] - Activity at Discharge: Increase Activity as Tolerated
[2017-01-15] MEDS ORDERED: POTASSIUM CHLORIDE 20 MEQ TABLET PO ONE (17:02)
== END 2017-01-15 17:30 | disposition home or self-care (01) | DRG 195 ==
LOC: ER 18:23 → MEDSURG 23:42
PROVIDERS: ADMIT Emergency Medicine; ATTEND Emergency Medicine
DX: J18.1 Lobar pneumonia, unspecified organism (principal); R10.11 Right upper quadrant pain; R19.7 Diarrhea, unspecified; F17.200 Nicotine dependence, unspecified, uncomplicated; E86.0 Dehydration; Z78.9 Other specified health status
CPT/HCPCS: 71020; 71275; 80048; 80053; 80076; 81001; 83690; 85027; 85379; 87400; 94620; 94640; 94667; 94668; 94760; 94761; 96361; 96365; 96375; 99223; 99233; 99285; J1170; J1885; J1956; J2405; J2930; J7030